=== PATIENT | male | born 1955 | race Caucasian/White ===

== ENCOUNTER 2017-04-24 15:35 | Emergency (ER) | payer MEDICAID ==
[~2017-04-24] VITALS: Ht 165.1 cm; Wt 79.0 kg
[~2017-04-24 15:35] MED LIST: ADVAI250I PO; ALBU8I INH; AMLO10 PO; ASPI1TAB69 PO; ASPI325T PO; ATOR40TA PO; DUONI NEB; HYDR-3533 PO; KEPP10002 PO; LEVE500 PO; LOSA25TA PO; METO25 PO; METO25TA3 PO; NORC5TAB PO; PRED20 PO; PRIL20CA PO; SPIRCAP INH; UNKNOWN BP MED PO
[2017-04-24 15:40] VITALS: PULSE 82; RESP 32; TEMP 97.7; O2SAT 93
[2017-04-24] MEDS ORDERED: NORC5TAB PO (15:53)
[2017-04-24] MEDS ORDERED: ASPI-183 PO (15:53)
[2017-04-24] MEDS ORDERED: ADVA250A INH (15:54)
[2017-04-24] MEDS ORDERED: SPIRCAP INH (15:54)
[2017-04-24] MEDS ORDERED: FLUTI44I INH (15:54)
[2017-04-24] MEDS ORDERED: AMBI5TAB PO (15:54)
[2017-04-24] MEDS ORDERED: ATOR20TA15 PO (15:54)
[2017-04-24] MEDS ORDERED: IPRASOL INH (15:54)
[2017-04-24] MEDS ORDERED: oxyCODONE/ACETAMINOPHEN 5 MG/325 MG TAB PO ONE (16:00)
[2017-04-24] MEDS ORDERED: TETANUS/DIPHTHERIA TOXOID ADULT 0.5 ML VIAL IM ONE (16:00)
[2017-04-24 16:05] VITALS: BP 99/53; PULSE 74; RESP 18; O2SAT 95
--- NOTE | 2017-04-24 16:22 | RADRPT ---
EXAM DATE/TIME: 04/24/2017 16:06 [facility] COMPARISON: No previous studies available for comparison. INDICATIONS : Fall. Right facial injury. RADIATION DOSE: 61.26 CTDIvol (mGy) MEDICAL HISTORY : Cerebrovascular disease. Seizures. Hypertension. SURGICAL HISTORY : Tonsillectomy. Cholecystectomy.Hernia repair. ENCOUNTER: Initial ACUITY: 1 day PAIN SCALE: 5/10 LOCATION: Right cranial TECHNIQUE: Multiple contiguous axial images were obtained of the head. Using automated exposure control and adj ustment of the mA and/or kV according to patient size, radiation dose was kept as low as reasonably a chievable to obtain optimal diagnostic quality images. DICOM format image data is available electro nically for review and comparison. FINDINGS: There is a remote left MCA distribution infarct. No mass or shift. No hydrocephalus. No abnormal extr a-axial fluid collections. No acute bony abnormalities. There is fluid in both maxillary sinuses. Partial opacification of the ethmoid air cells. CONCLUSION: 1. Remote left MCA infarct, stable since August 2016. 2. Acute bilateral maxillary sinusitis. Ezequiel Richards MD on April 24, 2017 at 16:20 Board Certified Radiologist. This report was verified electronically.
[2017-04-24] MEDS ORDERED: KEPP10002 PO (16:38)
--- NOTE | 2017-04-24 16:38 | PD ---
HPI . Nasal injury Chief Complaint: Fall Time Seen by Provider: 15:47 Travel History International Travel<30 days: No Contact w/Intl Traveler<30days: No Traveled to known affect area: No History of Present Illness HPI This patient presents after an apparent fall with an injury to the left side of his nose. This occurred just prior to arrival. Patient has expressive aphasia and a seizure disorder as a result of a previous CVA. He lives with his daughter. He was in his room and suddenly him out of the room holding his nose. The daughter states that there was blood everywhere. States that she did not hear him fall or have a seizure. She does not know what he could've struck his nose on. She does not know the date of his last tetanus shot. She states that he has been taken off his seizure medication because he has not had any seizures in a while. However, she believes that he has had a couple seizures the last month. Patient is able to communicate some and was able to tell us that the pain in his nose is rated 8/10. He denies any other injury. PFSH Past Medical History COPD: Yes Cerebrovascular Accident: Yes Diminished Hearing: No Hypertension: Yes Neurologic: Yes (Stroke with left sided weakness residual, Degenerative back disease) Respiratory: Yes (Emphysema) Seizures: Yes Influenza Vaccination: Yes ?: Not Past Surgical History Abdominal Surgery: Yes (hernia repair) Cholecystectomy: Yes Tonsillectomy: Yes Social History Alcohol Use: Yes Tobacco Use: Yes Allergies-Medications (Allergen,Severity, Reaction): Coded Allergies: No Known Allergies (Unverified Adverse Reaction, Unknown, 04/24/17) Reported Meds & Prescriptions Reported Meds & Active Scripts Active Keppra (Levetiracetam) 1,000 Mg Tab 1,000 Mg PO BID Norvasc (Amlodipine Besylate) 10 Mg Tab 10 Mg PO DAILY Reported Duoneb (Ipratropium-Albuterol Neb) 0.5-2.5 Mg/3 Ml Neb 1 Nebule INH Q4HR NEB Flovent Hfa 10.6 GM Inh (Fluticasone Propionate) 44 Mcg/Act Inh 2 Puff INH DAILY Use daily at the same time. Ambien (Zolpidem Tartrate) 5 Mg Tab 5 Mg PO HS PRN Spiriva Handihaler (Tiotropium Inh) 18 Mcg Cap 18 Mcg INH DAILY 1 capsule = 18 mcg Advair Diskus Inh (Fluticasone-Salmeterol Inh) 250-50 Mcg/Blist Aer 1 Puff INH BID Rinse mouth after use. Atorvastatin (Atorvastatin Calcium) 20 Mg Tab 20 Mg PO HS [place] (Hydrocodone-Acetaminophen) 5 Mg-325 Mg Tab 1 Tab PO Q4H PRN Aspirin 325 Mg Tab 325 Mg PO DAILY Metoprolol Tartrate 25 Mg Tab 25 Mg PO BID Losartan (Losartan Potassium) 25 Mg Tab 12.5 Mg PO DAILY Review of Systems ROS Limitations: Speech Impaired Except as stated in HPI: all other systems reviewed are Neg Physical Exam Narrative GENERAL: Awake and alert and in no acute distress. SKIN: Warm and dry. Laceration on the left side of his nose. HEAD: Normocephalic/atraumatic. EYES: Pupils are equal. Extraocular movements are intact. ENT: There is a little bit of blood in the left nostril. No active bleeding. The nose is tender to palpation. There is no obvious deformity of his nose. NECK: Normal range of motion. Nontender. CARDIOVASCULAR: Regular rate and rhythm. RESPIRATORY: Nonlabored respirations. MUSCULOSKELETAL: Atraumatic. NEUROLOGICAL: Expressive aphasia. He can say a few words, mainly curse words. He is also able to communicate via gesturing and holding up his fingers. PSYCHIATRIC: Unable to evaluate Data Data Last Documented VS Vital Signs Date Time Temp Pulse Resp B/P (MAP) Pulse Ox O2 Delivery O2 Flow Rate FiO2 04/24/17 16:05 74 18 99/53 (68) 95 Room Air 04/24/17 15:40 97.7 Orders Orders Tetanus/Diphtheria Tox Adult (Tetanus/Di (04/24/17 16:00) Ct Brain W/O Iv Contrast(Rout) (04/24/17 15:52) Ct Facial Bones W/O Iv Cont (04/24/17 15:52) Oxycodone-Acetamin 5-325 Mg (Percocet (04/24/17 16:00) MDM Medical Decision Making Medical Screen Exam Complete: Yes Emergency Medical Condition: Yes Differential Diagnosis Differential diagnosis of facial trauma includes but is not limited to soft tissue contusion, abrasions, laceration, nasal fracture, orbital fracture, zygomatic fracture Narrative Course This patient presents with an injury to his nose. He probably had a seizure. He has a history of previous CVA with resultant expressive aphasia and seizure disorder. CT of his head and face have been ordered. He is complaining with significant pain. He is being treated with morphine and Zofran. Tetanus has been updated. The laceration will be repaired with Dermabond. Procedures Procedure Narrative LACERATION LOCATION: Nose LENGTH: 3 cm REPAIR: The area of the laceration was prepped with sterile water. The wound was closed using Dermabond. The patient was advised to keep the dressing clean and dry. Patient tolerated the procedure well. Diagnosis Primary Impression: Nasal laceration Qualified Codes: S01.21XA - Laceration without foreign body of nose, initial encounter Patient Instructions: Facial Laceration (ED), General Instructions Med/Other Pt SpecificInfo: Prescription(s) given Scripts Levetiracetam (Keppra) 1,000 Mg Tab 1000 MG PO BID for Control Seizures, #60 TAB 0 Refills Prov: Liliana Mir MD 04/24/17 Disposition: 01 DISCHARGE HOME Condition: Stable Liliana Mir MD Apr 24, 2017 16:38
--- NOTE | 2017-04-24 16:46 | RADRPT ---
EXAM DATE/TIME: 04/24/2017 16:06 [facility] COMPARISON: No previous studies available for comparison. INDICATIONS : Fall. Right facial injury. RADIATION DOSE: 34.94 CTDIvol (mGy) MEDICAL HISTORY : Cerebrovascular disease. Seizures. Hypertension. SURGICAL HISTORY : Tonsillectomy. Cholecystectomy.Hernia surgery. ENCOUNTER: Initial ACUITY: 1 day PAIN SCORE: 6/10 LOCATION: Right facial TECHNIQUE: Volumetric scanning of the facial bones was performed. Using automated exposure control and adjustme nt of the mA and/or kV according to patient size, radiation dose was kept as low as reasonably achiev able to obtain optimal diagnostic quality images. DICOM format image data is available electronicall y for review and comparison. FINDINGS: ORBITS: The orbital and infraorbital osseous structures are intact. The retroconal structures have a normal configuration. No radiopaque foreign bodies are seen. NASAL BONE: The nasal bone and maxillary spine are intact ZYGOMATIC ARCHES: Symmetric without evidence of fracture. SINUSES: Air-fluid levels are identified in both maxillary sinuses. Several ethmoid air cells are opacified. NASAL CAVITY: The nasal septum is intact and midline. The lacrimal ducts are intact. SOFT TISSUES: No radiopaque foreign bodies seen. Mild soft tissue swelling is noted along the forehead. INTRACRANIAL: No intracranial air seen. CRIBIFORM PLATE: Grossly intact. CONCLUSION: 1. Air-fluid levels in both maxillary sinuses 2. Several opacified ethmoid air cells 3. No acute fracture Jt Brower MD on April 24, 2017 at 16:40 Board Certified Radiologist. This report was verified electronically.
[2017-04-24 16:56] VITALS: RESP 18
[2017-04-24 17:03] VITALS: BP 105/62
== END 2017-04-24 17:04 | disposition home or self-care (01) ==
LOC: MERGE 15:35 → PHED 15:35
DX: S01.21XA Laceration without foreign body of nose, initial encounter (principal); W19.XXXA Unspecified fall, initial encounter; J44.9 Chronic obstructive pulmonary disease, unspecified; I10 Essential (primary) hypertension; I69.320 Aphasia following cerebral infarction; G40.909 Epilepsy, unspecified, not intractable, without status epilepticus; Z72.0 Tobacco use
CPT/HCPCS: 12013; 70450; 70486; 90471; 90714